=== PATIENT | female | born 1960 | race Two or more races ===

== ENCOUNTER 2022-05-08 16:20 | Emergency (ER) | payer OTHER ==
[~2022-05-08] VITALS: Ht 152.4 cm; Wt 71.4 kg
[2022-05-08 18:56] VITALS: BP 144/89
[2022-05-08] MEDS: ACETAMINOPHEN 325 MG TAB PO ONE (19:37)
== END 2022-05-08 19:41 | disposition home or self-care (01) ==
LOC: ER 16:20
DX: S66.912A Strain of unspecified muscle, fascia and tendon at wrist and hand level, left hand, initial encounter (principal); W01.0XXA Fall on same level from slipping, tripping and stumbling without subsequent striking against object, initial encounter; Y93.89 Activity, other specified; Y92.89 Other specified places as the place of occurrence of the external cause; Y99.8 Other external cause status
CPT/HCPCS: 29125; 73110